=== PATIENT | female | born 1935 | race Caucasian/White ===

== ENCOUNTER 2017-01-07 10:08 | Outpatient (CLI) | payer MEDICARE, OTHER | END 2017-01-07 10:09 | disposition home or self-care (01) | DX: Z12.31 Encounter for screening mammogram for malignant neoplasm of breast (principal); Z85.3 Personal history of malignant neoplasm of breast; Z90.12 Acquired absence of left breast and nipple ==

== ENCOUNTER 2017-01-20 12:33 | Outpatient (CLI) | payer MEDICARE, OTHER | END 2017-01-20 12:34 | disposition home or self-care (01) | DX: S02.2XXA Fracture of nasal bones, initial encounter for closed fracture (principal) ==

== ENCOUNTER 2017-01-26 15:44 | Outpatient (CLI) | payer MEDICARE, OTHER ==
--- NOTE | 2017-01-27 10:30 | XRAY Report ---
THREE-VIEW RIGHT HAND: 01/26/2017 CLINICAL INDICATION: Pain. FINDINGS: AP, lateral, oblique views of the right hand demonstrate severe rheumatoid arthritis nunez es of the wrist joints and metacarpophalangeal joints. Additionally, there is an oblique fracture of the proximal phalanx of the right thumb, without definite intraarticular extension. No other fractu re is appreciated. IMPRESSION: FRACTURE OF THE PROXIMAL PHALANX OF THE RIGHT THUMB, MILDLY DISPLACED. SEVERE RHEUMATOI D ARTHRITIS. JOB #: [id number] EXT JOB #:[id number]
== END 2017-01-26 15:45 | disposition home or self-care (01) ==
LOC: DI 15:44
PROVIDERS: ATTEND Internal Medicine
DX: S62.511A Displaced fracture of proximal phalanx of right thumb, initial encounter for closed fracture (principal); M06.9 Rheumatoid arthritis, unspecified

== ENCOUNTER 2017-01-27 13:27 | Outpatient (CLI) | payer MEDICARE, OTHER ==
--- NOTE | 2017-01-28 11:45 | XRAY Report ---
TWO-VIEW RIGHT HIP: 01/27/2017 CLINICAL HISTORY: Hip pain. FINDINGS: The osseous structures are demineralized which does limit characterization of the cortices. There is no definite fracture or focus of destruction. There are degenerative changes noted about the right hip with joint space narrowing, subchondral sclerosis, and osteophytic formation. Degenerative changes and scoliosis incidental in the visualized lower lumbar spine. Moderate stool and gas is incidental in the colon. This does obscure detailed evaluation of the sacral ala. IMPRESSION: DEMINERALIZATION. NO ACUTE PROCESS. Reference additional comments above. JOB #: [id number] EXT JOB #: [id number] KANA
--- NOTE | 2017-01-28 11:46 | XRAY Report ---
TWO-VIEW RIGHT FEMUR: 01/27/2017 CLINICAL INDICATION: Leg pain. FINDINGS: Patchy bony demineralization noted. There is no fracture or focus of destruction. Proximal and distal joint spaces are preserved. Atherosclerotic calcifications are incidental in the femoral artery. IMPRESSION: 1. DEMINERALIZATION AND DEGENERATIVE CHANGES. NO ACUTE FRACTURE OR FOCUS OF DESTRUCTION. 2. VASCULAR CALCIFICATIONS. JOB #: [id number] EXT JOB #:[id number]
--- NOTE | 2017-01-28 11:46 | XRAY Report ---
TWO-VIEW RIGHT TIBIA AND FIBULA: 01/27/2017 HISTORY: Pain. FINDINGS: Patchy bony demineralization is noted. Mild degenerative changes are present at the proxi mal and distal joint spaces. There is no fracture, focus of destruction or malalignment. The soft tissues are grossly normal. IMPRESSION: BONY DEMINERALIZATION AND MILD DEGENERATIVE CHANGES. NO CUTE FRACTURE OR FOCUS OF DESTR UCTION. JOB #: [id number] EXT JOB #:[id number]
--- NOTE | 2017-01-28 11:46 | XRAY Report ---
THREE-VIEW RIGHT KNEE: 01/27/2017 HISTORY: Pain. FINDINGS: Patchy bony demineralization. Mild multicompartment degenerative changes noted with early medial, lateral, and patellofemoral narrowing and subchondral sclerosis. A small suprapatellar joint effusion exists. There is no fracture, focus of destruction, or malalignment. Vascular calcifications are incidental. IMPRESSION: 1. DEMINERALIZATION AND MILD DEGENERATIVE CHANGES. NO ACUTE PROCESS. 2. VASCULAR CALCIFICATIONS. :9 JOB #: [id number] EXT JOB #:[id number]
== END 2017-01-27 13:28 | disposition home or self-care (01) ==
LOC: DI 13:27
PROVIDERS: ATTEND Internal Medicine
DX: M16.11 Unilateral primary osteoarthritis, right hip (principal); M19.071 Primary osteoarthritis, right ankle and foot; M17.11 Unilateral primary osteoarthritis, right knee

== ENCOUNTER 2017-02-25 10:47 | Outpatient (CLI) | payer MEDICARE, OTHER | END 2017-02-25 10:48 | disposition critical access hospital (66) | DX: R10.9 Unspecified abdominal pain (principal) | CPT/HCPCS: A0425; A0427 ==

== ENCOUNTER 2017-02-25 11:16 | Emergency (ER) | payer MEDICARE, OTHER ==
[2017-02-25] MEDS ORDERED: SODIUM CHLORIDE 0.9% 1,000 ML IV ONE ×2 (12:24→12:31)
[2017-02-25] MEDS ORDERED: ONDANSETRON 4 MG/2 ML VIAL IVP STA (12:24)
[2017-02-25] MEDS ORDERED: HYDROmorphone 1 MG/ML SYRINGE IVP STA ×2 (12:24→14:26)
[2017-02-25] MEDS ORDERED: ONDANSETRON 4 MG/2 ML VIAL ONE (12:31)
[2017-02-25] MEDS ORDERED: HYDROmorphone 1 MG/ML SYRINGE ONE ×2 (12:31→14:45)
[2017-02-25] MEDS ORDERED: IOPAMIDOL-300 100 ML VIAL IVP ONE (14:14)
== END 2017-02-25 15:23 | disposition home or self-care (01) ==
DX: R10.32 Left lower quadrant pain (principal); K59.00 Constipation, unspecified; M06.9 Rheumatoid arthritis, unspecified; Z79.52 Long term (current) use of systemic steroids; I10 Essential (primary) hypertension; E78.00 Pure hypercholesterolemia, unspecified; G62.9 Polyneuropathy, unspecified; K21.9 Gastro-esophageal reflux disease without esophagitis
CPT/HCPCS: 74177; 80053; 81003; 83690; 85025; 96374; 96375; 96376; 99283; 99284; J1170; Q9967

== ENCOUNTER 2017-04-02 09:15 | Outpatient (CLI) | payer MEDICARE, OTHER | END 2017-04-02 09:16 | disposition home or self-care (01) | DX: I10 Essential (primary) hypertension (principal) ==

== ENCOUNTER 2017-04-21 11:05 | Outpatient (CLI) | payer MEDICARE, OTHER ==
--- NOTE | 2017-04-21 14:40 | XRAY Report ---
THREE-VIEW LUMBAR SPINE: 04/21/2017 CLINICAL INDICATION: Pain. COMPARISON: MRI 05/24/2016, plain films 02/16/2009. FINDINGS: Frontal, lateral, coned-down views of the lumbar spine demonstrate dextroscoliosis, simila r to MRI, increased from plain films of 02/16/2009. Degenerative disk and facet disease has increase d in the interval. Vascular calcifications are present. No definite compression fracture is identif ied, allowing for degree of scoliosis. IMPRESSION: DEGENERATIVE CHANGES, WITH DEXTROSCOLIOSIS, SIMILAR TO MRI. JOB #: [id number] EXT JOB #:[id number]
--- NOTE | 2017-04-21 14:46 | XRAY Report ---
RIGHT HIP AND PELVIS: 04/21/2017 CLINICAL INDICATION: Pain. COMPARISON: 01/27/2017 FINDINGS: Frontal view of the hips and pelvis and frogleg lateral view of the right hip demonstrate stable osteoarthritis. Old, healed left pelvic fractures are stable. No acute fracture is present. Vascular calcifications are present. IMPRESSION: STABLE OSTEOARTHRITIS OF THE RIGHT HIP. OLD, HEALED LEFT PELVIC FRACTURES. JOB #: [id number] EXT JOB #:[id number]
== END 2017-04-21 11:06 | disposition home or self-care (01) ==
LOC: DI.N 11:05
PROVIDERS: ATTEND Internal Medicine
DX: M51.36 Other intervertebral disc degeneration, lumbar region (principal); M47.896 Other spondylosis, lumbar region; M41.86 Other forms of scoliosis, lumbar region; M16.11 Unilateral primary osteoarthritis, right hip
CPT/HCPCS: 72100

== ENCOUNTER 2017-10-28 14:21 | Outpatient (CLI) | payer MEDICARE, OTHER ==
[2017-10-28 13:20] LABS: BASOPHILS # (AUTO) 0.1 10^3/uL (0.0-0.1); BASOPHILS % (AUTO) 0.8 %; EOSINOPHILS # (AUTO) 0.2 10^3/uL (0.0-0.7); EOSINOPHILS % (AUTO) 1.9 %; HCT - HEMATOCRIT 37.4 % (37.0-47.0); HGB - HEMOGLOBIN 12.7 g/dL (12.0-16.0); LYMPHOCYTES # (AUTO) 2.8 10^3/uL (1.5-3.5); LYMPHOCYTES % (AUTO) 30.9 %; MEAN CORPUSCULAR HEMOGLOBIN 30.9 pg (27.0-31.0); MEAN CORPUSCULAR HGB CONC 33.9 g/dL (32.0-36.0); MEAN CORPUSCULAR VOLUME 91.4 fL (81.0-99.0); MONOCYTES # (AUTO) 0.9 10^3/uL (0.0-1.0); MONOCYTES % (AUTO) 10.1 %; NEUTROPHILS # (AUTO) 5.1 10^3/uL (1.5-6.6); NEUTROPHILS % (AUTO) 56.3 %; NUCLEATED RED BLOOD CELLS AUTO 0.1 /100WBC; UNCORRECTED WHITE BLOOD COUNT 9.1 x10^3/uL; WHITE BLOOD COUNT 9.1 x10^3/uL (4.8-10.8)
[2017-10-28 13:59] LABS: ALBUMIN/GLOBULIN RATIO 1.7 (1.0-2.2); BILIRUBIN,TOTAL 0.8 mg/dL (0.2-1.0); CALCIUM 9.4 mg/dL (8.5-10.3); CREATININE 0.5 mg/dL (0.4-1.0); POTASSIUM 3.9 mmol/L (3.5-5.0); TOTAL PROTEIN 6.4 g/dL (6.7-8.2)
== END 2017-10-28 14:22 | disposition home or self-care (01) ==
LOC: LAB.WCP 14:21
PROVIDERS: ATTEND Internal Medicine Rheumatology
DX: M06.9 Rheumatoid arthritis, unspecified (principal)
CPT/HCPCS: 36415; 80053; 85025; 85651

== ENCOUNTER 2018-01-07 09:40 | Outpatient (CLI) | payer MEDICARE, OTHER ==
--- NOTE | 2018-01-08 14:06 | Mammography Report ---
DIGITAL SCREENING RIGHT MAMMOGRAM: 01/07/2018 CLINICAL INDICATION: An 82-year-old with personal history of left breast cancer, status post mastectomy for screening. COMPARISON: 12/2016, 07/2014, 09/2011, 09/2009. TECHNIQUE: Right CC and MLO views were obtained. FINDINGS: The right breast again demonstrate scattered fibroglandular densities. Biopsy marker in the right inner central breast is stable. No suspicious masses, clustered microcalcifications, or regions of architectural distortion are identified. IMPRESSION: BENIGN FINDINGS. RECOMMENDATION: ROUTINE ANNUAL SCREENING UNLESS OTHERWISE CLINICALLY INDICATED. BIRADS CATEGORY 2-BENIGN FINDINGS. STANDARD QUALIFYING STATEMENTS: 1. This examination was reviewed with the aid of Computer-Aided Detection (CAD). 2. A negative or benign imaging report should not delay biopsy if clinically suspicious findings are present. Consider surgical consultation if warranted. More than 5% of cancers are not identified by imaging. 3. Dense breasts may obscure an underlying neoplasm. TD: 01/08/2018 14:02
== END 2018-01-07 09:41 | disposition home or self-care (01) ==
LOC: DI 09:40
PROVIDERS: ATTEND Internal Medicine
DX: Z12.31 Encounter for screening mammogram for malignant neoplasm of breast (principal); Z85.3 Personal history of malignant neoplasm of breast; Z90.12 Acquired absence of left breast and nipple

== ENCOUNTER 2018-09-07 10:19 | Outpatient (CLI) | payer MEDICARE, OTHER ==
--- NOTE | 2018-09-07 16:18 | DEXA Report ---
Reason: OSTEOPOROSIS Procedure Date: 09/07/2018 Accession Number: [id number] / [id number] Procedure: DEX - Dexa Spine and/or Hip CPT Code: FULL RESULT: EXAM: Dexa Spine and/or Hip DATE: 09/07/2018 11:03 AM CLINICAL HISTORY: OSTEOPOROSIS TECHNIQUE: Dual energy x-ray absorptiometry (DXA) was performed on a [employer] System. Regions measured are the AP Spine, femoral neck, and if needed forearm. COMPARISON: 05/13/2016 In accordance with the International Society for Clinical Densitometry (ISCD) guidelines, data from previous exams may be reanalyzed using current recommendations and techniques. This is done to allow a more accurate basis for comparison with the current study. FINDINGS: The data for the lumbar spine is as follows: BMD (g/cm/cm) T-SCORE Z-SCORE REGION L1 0.661 -3.9 -1.5 L2 0.938 -2.2 0.2 L3 1.137 -0.5 1.9 L4 1.121 -0.7 1.8 TOTAL 0.957 -1.9 0.6 NOTE: All evaluable vertebrae are used for classification The data for the hip is as follows: BMD (g/cm/cm) T-SCORE Z-SCORE REGION Neck 0.706 -2.4 0.2 TOTAL 0.750 -2.0 0.4 NOTE: The femoral neck or total proximal femur, whichever is lowest, is used for classification. DXA RESULTS SUMMARY: Spine SCAN DATE AGE BMD CHANGE VS CHANGE VS PREVIOUS PREVIOUS % 09[birth year]07/2018 [age] 0.957 -0.113* -10.6* 05/13/2016 [age] 1.070 * Denotes significant change at the 95% confidence level. Denotes dissimilar scan types or analysis methods. DXA RESULTS SUMMARY: Hip SCAN DATE AGE BMD CHANGE VS CHANGE VS PREVIOUS PREVIOUS % [birth year]07[birth year]2018 83.2 0.750 -0.023 -3.0 05/13/2016 [age] 0.773 * Denotes significant change at the 95% confidence level. Denotes dissimilar scan types or analysis methods. IMPRESSION: THE WHO CLASSIFICATION BASED ON THE INTERNATIONAL REFERENCE STANDARD IS OSTEOPENIA. THE FRACTURE RISK IS INCREASED. RECOMMENDATION: Patients with diagnosis of osteoporosis or osteopenia should have regular bone mineral density assessment. For those eligible for Medicare, routine testing is allowed once every 2 years. Testing frequency can be increased for patients who have rapidly progressing disease or for those who are receiving medical therapy to restore bone mass. COMMENT: World Health Organization (WHO) definitions for osteoporosis and osteopenia: NORMAL BMD: T-score at -1.0 or higher, fracture risk is low OSTEOPENIA BMD: T-score between -1.0 and -2.5, fracture risk is increased. OSTEOPOROSIS BMD: T-score at -2.5 or lower, fracture risk is high. National Osteoporosis Foundation recommends: 1. Obtain adequate dietary calcium (at least 1200 mg per day) and vitamin D (400-800 international units per day). 2. Participate, as appropriate, in regular weightbearing and muscle-strengthening exercise. 3. Avoid tobacco use and reduce alcohol and caffeine intake. 4. For more detailed information see the website at www.NOF.org.
== END 2018-09-07 10:20 | disposition home or self-care (01) ==
LOC: DI 10:19
PROVIDERS: ATTEND Internal Medicine
DX: M81.0 Age-related osteoporosis without current pathological fracture (principal); M85.89 Other specified disorders of bone density and structure, multiple sites
CPT/HCPCS: 77080

== ENCOUNTER 2018-10-13 09:11 | Outpatient (CLI) | payer MEDICARE, OTHER ==
--- NOTE | 2018-10-14 14:09 | CT Report ---
Reason: SPINAL STENOSIS, CERVICAL REGION Procedure Date: 10/13/2018 Accession Number: [id number] / [id number] Procedure: CT - Cervical Spine W/O CPT Code: FULL RESULT: EXAM: CT CERVICAL SPINE WITHOUT CONTRAST DATE: 10/13/2018 09:45 AM. HISTORY: Spinal stenosis, cervical region. COMPARISONS: MRI cervical spine 05/24/2016. TECHNIQUE: Thin-section axial images were acquired of the cervical spine without contrast. Post-processing: Coronal and sagittal reformats. Other: None. In accordance with CT protocol optimization, one or more of the following dose reduction techniques were utilized for this exam: automated exposure control, adjustment of mA and/or KV based on patient size, or use of iterative reconstructive technique. FINDINGS: Alignment: There is loss of the normal cervical lordosis. There is approximately 3 mm anterolisthesis of C3 on C4, 3-4 mm retrolisthesis of C6 on C7, 3-4 mm anterolisthesis of C7 on T1, and 3 mm anterolisthesis of T2 on T3. Bones: Vertebral body heights are maintained. Degenerative endplate sclerosis at C4-C5, C5-C6 and C6-C7. Degenerative sclerosis at the inferior T1 endplate. Interspace Levels/Facets: C1-C2: Unremarkable. C2-C3: Left greater than right facet arthropathy. Left greater than right uncovertebral hypertrophy. Mild left foraminal narrowing. C3-C4: Severe disk height loss. Posterior disk osteophyte complex with right greater than left uncovertebral hypertrophy. Bilateral facet arthropathy. Moderate to severe right, mild left foraminal narrowing Findings could be correlated with the right C4 radiculopathy. C4-C5: Severe disk height loss. Posterior disk osteophyte complex eccentric to the right with right greater than left uncovertebral hypertrophy. Severe right greater than left foraminal narrowing. Moderate canal narrowing which is more pronounced on the right. Findings could be correlated with right greater than left C5 radiculopathy. C5-C6: Severe disk height loss. Posterior disk osteophyte complex with left greater than right uncovertebral hypertrophy. Severe left greater than right foraminal narrowing. Moderate canal narrowing. Findings could be correlated with left greater than right C6 radiculopathy. C6-C7: Retrolisthesis. Severe disk height loss. Left greater than right uncovertebral hypertrophy and left eccentric disk osteophyte complex. Severe left greater than right foraminal narrowing could be correlated with left greater than right C7 radiculopathy. C7-T1: Anterolisthesis. Moderate to severe disk height loss. No significant canal or foraminal narrowing. Left greater than right facet arthropathy. Moderate disk height loss at T1-T2 without significant canal or foraminal narrowing. Severe left greater than right disk height loss. 3 mm anterolisthesis at T2 and T3, moderate disk height loss. No significant foraminal narrowing. Musculature: Normal. No fatty atrophy. Other: The paravertebral and prevertebral soft tissues are unremarkable. The lung apices are clear. IMPRESSION: 1. Multilevel degenerative changes in a similar pattern compared to prior MRI cervical spine 05/24/2016. 2. Anterolisthesis at C3-C4, C7-T1 and T2-T3. Retrolisthesis at C6-C7, detailed above. 3. At C2-C3, mild left foraminal narrowing. 4. At C3-C4, moderate to severe right, mild left foraminal narrowing could be correlated with right C4 radiculopathy. 5. At C4-C5, severe right greater than left foraminal narrowing could be correlated with right greater than left C5 radiculopathy. 6. At C5-C6, moderate canal narrowing. Severe left greater than right foraminal narrowing could be correlated with left greater than right C6 radiculopathy. 7. At C6-C7, severe left greater than right foraminal narrowing could be correlated with left greater than right C7 radiculopathy. RADIA
== END 2018-10-13 09:12 | disposition home or self-care (01) ==
LOC: DI 09:11
PROVIDERS: ATTEND Orthopaedic Surgery
DX: M48.02 Spinal stenosis, cervical region (principal); M50.10 Cervical disc disorder with radiculopathy, unspecified cervical region
CPT/HCPCS: 72125

== ENCOUNTER 2019-01-24 12:08 | Outpatient (CLI) | payer MEDICARE, OTHER ==
--- NOTE | 2019-01-24 14:52 | XRAY Report ---
Reason: ACUTE COMMON COLD Procedure Date: 01/24/2019 Accession Number: [id number] / [id number] Procedure: XRN - Chest 2 View X-Ray CPT Code: 37845 FULL RESULT: EXAM: CHEST RADIOGRAPHY EXAM DATE: 01/24/2019 12:25 PM. CLINICAL HISTORY: Acute common cold. COMPARISON: 10/05/2013 1:16 PM. TECHNIQUE: 2 views. FINDINGS: Lungs/Pleura: No focal opacities evident. No pleural effusion. No pneumothorax. Normal volumes. Mediastinum: The heart is enlarged. Mediastinal and hilar contours are within normal limits. Other: S-shaped long thoracic scoliosis is again noted, convex right in its lower portion. Chronic nonunited fracture of the posterior right eighth rib. IMPRESSION: 1. Cardiomegaly with no edema or infiltrate. RADIA
== END 2019-01-24 12:09 | disposition home or self-care (01) ==
LOC: DI.N 12:08
PROVIDERS: ATTEND Internal Medicine
DX: J06.9 Acute upper respiratory infection, unspecified (principal); I51.7 Cardiomegaly
CPT/HCPCS: 71046

== ENCOUNTER 2019-09-15 09:22 | Outpatient (CLI) | payer MEDICARE, OTHER ==
[2019-09-15 09:59] LABS: BASOPHILS # (AUTO) 0.1 10^3/uL (0.0-0.1); BASOPHILS % (AUTO) 0.5 %; EOSINOPHILS # (AUTO) 0.2 10^3/uL (0.0-0.7); EOSINOPHILS % (AUTO) 2.4 %; HGB - HEMOGLOBIN 12.1 g/dL (12.0-16.0); LYMPHOCYTES # (AUTO) 1.7 10^3/uL (1.5-3.5); LYMPHOCYTES % (AUTO) 18.4 %; MEAN CORPUSCULAR HEMOGLOBIN 29.6 pg (27.0-31.0); MEAN CORPUSCULAR HGB CONC 31.5 g/dL (32.0-36.0); MEAN CORPUSCULAR VOLUME 93.9 fL (81.0-99.0); MONOCYTES # (AUTO) 0.7 10^3/uL (0.0-1.0); MONOCYTES % (AUTO) 7.2 %; NEUTROPHILS # (AUTO) 6.7 10^3/uL (1.5-6.6); PLT - PLATELET COUNT 402 10^3/uL (130-450); RED BLOOD COUNT 4.09 10^6/uL (4.20-5.40); RED CELL DISTRIBUTION WIDTH 13.8 % (12.0-15.0); WHITE BLOOD COUNT 9.4 x10^3/uL (4.8-10.8)
[2019-09-15 10:09] LABS: ALBUMIN 3.5 g/dL (3.2-5.5); ALBUMIN/GLOBULIN RATIO 0.9 (1.0-2.2); BILIRUBIN,TOTAL 0.5 mg/dL (0.2-1.0); CALCIUM 9.1 mg/dL (8.5-10.3); CREATININE 0.4 mg/dL (0.4-1.0); TOTAL PROTEIN 7.4 g/dL (6.7-8.2)
== END 2019-09-15 09:23 | disposition home or self-care (01) ==
LOC: LAB 09:22
PROVIDERS: ATTEND Internal Medicine Rheumatology
DX: M05.79 Rheumatoid arthritis with rheumatoid factor of multiple sites without organ or systems involvement (principal)
CPT/HCPCS: 36415; 80053; 85025; 85651

== ENCOUNTER 2019-11-23 08:00 | Outpatient (CLI) | payer MEDICARE, OTHER ==
[2019-11-23 12:41] LABS: BASOPHILS % (AUTO) 0.5 %; EOSINOPHILS # (AUTO) 0.2 10^3/uL (0.0-0.7); EOSINOPHILS % (AUTO) 3.9 %; HGB - HEMOGLOBIN 12.5 g/dL (12.0-16.0); LYMPHOCYTES # (AUTO) 3.1 10^3/uL (1.5-3.5); LYMPHOCYTES % (AUTO) 52.4 %; MEAN CORPUSCULAR HEMOGLOBIN 28.9 pg (27.0-31.0); MEAN CORPUSCULAR HGB CONC 30.3 g/dL (32.0-36.0); MEAN CORPUSCULAR VOLUME 95.4 fL (81.0-99.0); MEAN PLATELET VOLUME 11.1 fL (7.9-10.8); MONOCYTES # (AUTO) 0.7 10^3/uL (0.0-1.0); MONOCYTES % (AUTO) 12.1 %; NEUTROPHILS # (AUTO) 1.8 10^3/uL (1.5-6.6); NEUTROPHILS % (AUTO) 30.9 %; PLT - PLATELET COUNT 220 10^3/uL (130-450); RED BLOOD COUNT 4.32 10^6/uL (4.20-5.40); RED CELL DISTRIBUTION WIDTH 15.8 % (12.0-15.0); WHITE BLOOD COUNT 5.9 x10^3/uL (4.8-10.8)
[2019-11-23 13:40] LABS: ALBUMIN 4.3 g/dL (3.2-5.5); ALBUMIN/GLOBULIN RATIO 1.5 (1.0-2.2); BILIRUBIN,TOTAL 0.7 mg/dL (0.2-1.0); CALCIUM 9.7 mg/dL (8.5-10.3); CREATININE 0.5 mg/dL (0.4-1.0); TOTAL PROTEIN 7.2 g/dL (6.7-8.2)
== END 2019-11-23 23:59 | disposition home or self-care (01) ==
LOC: LAB.WCP 08:00
PROVIDERS: ATTEND Internal Medicine Rheumatology
DX: M05.79 Rheumatoid arthritis with rheumatoid factor of multiple sites without organ or systems involvement (principal)
CPT/HCPCS: 36415; 80053; 85025; 85651

== ENCOUNTER 2020-08-10 12:12 | Emergency (ER) | payer MEDICARE, OTHER ==
[2020-08-10] MEDS ORDERED: oxyCODONE 5 MG TABLET PO STA (13:49)
--- NOTE | 2020-08-10 13:50 | XRAY Report ---
PROCEDURE: Shoulder 2 View RT INDICATIONS: trauma TECHNIQUE: 2 views of the shoulder were acquired. COMPARISON: Concurrent study of the humerus.. FINDINGS: Bones: There is a mildly comminuted fracture of the right humeral head and neck. There is associated impaction of the humeral shaft component by approximately 0.6 cm. There is an old healed fracture of the mid humeral shaft. No suspicious bony lesions. Visualized ribs appear intact. Soft tissues: No suspicious soft tissue calcifications. IMPRESSION: 1. Mildly comminuted fracture of the humeral head and neck with mild impaction of the shaft component . 2. Healed mid humeral shaft fracture. Reviewed by: Jimbo Pereira MD on 08/10/2020 1:49 PM PDT Approved by: Jimbo Pereira MD on 08/10/2020 1:49 PM PDT Station ID: [id number]
--- NOTE | 2020-08-10 14:04 | ED Physician Documentation ---
History of Present Illness - Stated complaint Stated Complaint: GLF - Chief complaint Chief Complaint: Trauma Hd/Nk - History obtained from History obtained from: Patient - History of Present Illness Timing: Today Pain level max: 5 Pain level now: 5 - Additonal information Additional information: 85-year-old female presents to the emergency department stating that she was getting dressed when she tripped and fell and struck her head on the doorway. She complains of right shoulder pain and headache. She states she is not on blood thinners. No back pain. No numbness or tingling. She is currently in a sling. No loss of consciousness. No vomiting. Worse with movement and better with rest. Review of Systems Constitutional: denies: Fever, Chills Cardiac: denies: Chest pain / pressure Respiratory: denies: Cough GI: denies: Nausea, Vomiting, Diarrhea Skin: denies: Rash Musculoskeletal: denies: Neck pain, Back pain Neurologic: reports: Headache, Head injury. denies: Focal weakness, Numbness, Confused, Altered mental status PD PAST MEDICAL HISTORY - Past Medical History Past Medical History: Yes Cardiovascular: Hypertension, High cholesterol Respiratory: None Endocrine/Autoimmune: None GI: GERD CLINICAL APPEALS REVIEWER: Breast cancer : Incontinence, Frequency HEENT: Dental implants, Other Psych: None, Claustrophobia Musculoskeletal: Rheumatoid arthritis, Osteoporosis, Fatigue Derm: Other - Past Surgical History Past Surgical History: Yes General: Colonoscopy Ortho: Other /CLINICAL APPEALS REVIEWER: Mastectomy HEENT: Cataracts - Present Medications Home Medications: Ambulatory Orders Medication Instructions Recorded Confirmed Aspirin [Aspir 81] 81 mg ORAL DAILY 08/29/15 08/10/20 Calcium Carb/D3/Magnesium/Zinc 1 tab ORAL DAILY 08/29/15 08/10/20 [[place] Mag Zinc + D3 Tablet] Folic Acid 1 mg ORAL DAILY 08/29/15 08/10/20 Hydroxychloroquine [Plaquenil] 200 mg ORAL BID 08/29/15 03/02/20 Multivit-Min/FA/Lycopen/Lutein 1 tab ORAL DAILY 08/29/15 08/10/20 [Centrum Silver Tablet] [place]-3 Fatty Acids [Fish Oil] 300 mg ORAL DAILY 08/29/15 03/02/20 Omeprazole [PriLOSEC] 20 mg PO DAILY PRN 07/03/16 08/10/20 Atorvastatin Calcium [Lipitor] 0.5 tab ORAL DAILY 02/19/17 08/10/20 Enalapril Maleate [Vasotec] 1 tab PO DAILY 02/25/17 08/10/20 Hydrochlorothiazide 1 tab PO DAILY 02/25/17 03/02/20 Methotrexate 2.5 mg PO Q7D 02/25/17 03/02/20 raNITIdine [Zantac] 1 tab PO BID 02/25/17 03/02/20 Acetaminophen/Cod 300/30 [Tylenol 1 tab ORAL Q4HR PRN 09/10/17 08/10/20 #3] Prednisone [Patti] 4 mg PO DAILY 12/11/17 08/10/20 Fluoxetine HCl [Prozac] DAILY 08/10/20 Metoprolol Tartrate [Lopressor] 25 mg PO BID 08/10/20 08/10/20 Oxycodone HCl 2.5 mg PO Q6H PRN #14 tablet 08/10/20 - Allergies Allergies/Adverse Reactions: Allergies Allergy/AdvReac Type Severity Reaction Status Date / Time No Known Drug Allergies Allergy Verified 08/10/20 12:33 - Social History Does the pt smoke?: No Smoking Status: Former smoker Does the pt drink ETOH?: No Does the pt have substance abuse?: No - Immunizations Immunizations are current?: Yes - POLST Patient has POLST: No PD ED PE NORMAL - Vitals Vital signs reviewed: Yes - General General: Alert and oriented X 3, No acute distress - HEENT HEENT: Moist mucous membranes, Other (Hematoma to the right forehead. Significant bruising on the right side of the face especially, bilateral periorbital ecchymosis. No hyphemas. normal visual acuity) - Neck Neck: Supple, no meningeal sign - Cardiac Cardiac: RRR - Respiratory Respiratory: No respiratory distress, Clear bilaterally - Back Back: No CVA TTP, No spinal TTP (No midline tenderness to palpation. No step- off or deformity) - Derm Derm: Warm and dry - Extremities Extremities: Other (tender to palpation over the right glenohumeral joint. No tenderness along the remainder of the humerus. Neurovascular intact. Mild swelling. Otherwise normal examination of the extremities including the bilateral hips.) - Neuro Neuro: Alert and oriented X 3 Results - Vitals Vitals: Vital Signs - 24 hr 08/10/20 08/10/20 12:33 15:16 Temperature 36.8 C Heart Rate 57 L 56 L Respiratory 16 18 Rate Blood Pressure 171/85 H 140/112 H O2 Saturation 98 96 Oxygen O2 Source Room air - Rads (name of study) CT head Radiology: Prelim report reviewed, EMP read contemporaneously, See rad report CT maxillofacial Radiology: Prelim report reviewed, EMP read contemporaneously, See rad report CT cervical spine Radiology: Prelim report reviewed, EMP read contemporaneously, See rad report Right shoulder x-ray Radiology: Prelim report reviewed, EMP read contemporaneously, See rad report Right humerus x-ray Radiology: Prelim report reviewed, EMP read contemporaneously, See rad report PD MEDICAL DECISION MAKING - ED course Complexity details: reviewed results, re-evaluated patient, considered differential, d/w patient, d/w family ED course: 85-year-old female status post a ground-level fall. No acute findings on head CT, maxillofacial CT, cervical spine CT other than soft tissue contusions. Patient does have a impacted right humeral head fracture. Placed in a sling and swathe. Neurovascular intact. Will prescribe pain medications for home and have her follow-up with orthopedics. No other acute injuries. Patient and family counseled regarding signs and symptoms for which I believe and urgent re- evaluation would be necessary. Patient with good understanding of and agreement to plan and is comfortable going home at this time This document was made in part using voice recognition software. While efforts are made to proofread this document, sound alike and grammatical errors may occur. Departure - Departure Disposition: 01 Home, Self Care Clinical Impression: Contusion of face Qualifiers: Encounter type: initial encounter Qualified Code(s): S00.83XA - Contusion of other part of head, initial encounter Humeral head fracture Qualifiers: Encounter type: initial encounter Fracture type: closed Laterality: right Qualified Code(s): S42.291A - Other displaced fracture of upper end of right humerus, initial encounter for closed fracture Condition: Good Instructions: ED Contusion Face, ED Fx Upper Ext Follow-Up: Razia Campuzano MD [Primary Care Provider] - [facility] [Provider Group] - Within 1 week Prescriptions: Oxycodone HCl 2.5 mg PO Q6H PRN #14 tablet PRN Reason: pain Comments: There are no acute findings on your CT scan today. You are to stay in the splint until released by orthopedics. You do have a fracture of the right humeral head. Do not drink alcohol or drive while on narcotic pain medicine. Note that many narcotic pain relievers also contain tylenol/acetaminophen. Please ensure that your total dose of acetaminophen from all sources does not e xceed 3 grams (3000mg) per day. You may constipated on this medication, take a stool softener such as "Colace" twice a day while you are on it. Also recommend a dfhy-vlg-[id number] laxative such as senna or MiraLAX any day that you do not have a bowel movement. If you received narcotic pain medication in the emergency department, do not drive or operate machinery for the next 24 hours. Discharge Date/Time: 08/10/20 15:25
--- NOTE | 2020-08-10 14:16 | XRAY Report ---
PROCEDURE: Humerus RT INDICATIONS: trauma TECHNIQUE: 2 views of the humerus were acquired. COMPARISON: None. FINDINGS: Bones: Oblique fracture of the mid humeral diaphysis. Comminuted fracture of the surgical neck of the right humerus.. Calcific tendinitis. IMPRESSION: Right humeral fractures as above Reviewed by: Wicho Gray MD on 08/10/2020 2:15 PM PDT Approved by: Wicho Gray MD on 08/10/2020 2:15 PM PDT Station ID: [id number]
--- NOTE | 2020-08-10 14:20 | CT Report ---
PROCEDURE: HEAD WO INDICATIONS: Fall, right head, face, neck pain TECHNIQUE: Noncontrast 4.5 mm thick angled axial sections acquired from the foramen magnum to the vertex. For r adiation dose reduction, the following was used: automated exposure control, adjustment of mA and/or kV according to patient size. COMPARISON: None. FINDINGS: Image quality: Excellent. CSF spaces: Basal cisterns are patent. No extra-axial fluid collections. Ventricles are normal in size and shape. Brain: No midline shift. No intracranial masses or hemorrhage. Ramirez-white matter interface is norm al. Skull and face: Calvarium and visualized facial bones are intact, without suspicious lesions. Hemat genoveva and edema in the right scalp overlying the frontal bone in the right superior/lateral periorbital regions. Sinuses: Visualized sinuses and mastoids are clear. IMPRESSION: No acute intracranial finding. Hematoma and edema in the right scalp overlying the frontal bone in the right superior/lateral perior bital regions. Reviewed by: Pedro Otto MD on 08/10/2020 2:18 PM PDT Approved by: Pedro Otto MD on 08/10/2020 2:18 PM PDT Station ID: [id number]
--- NOTE | 2020-08-10 14:24 | CT Report ---
PROCEDURE: CERVICAL SPINE WO INDICATIONS: fall, R head, face, neck pain TECHNIQUE: Noncontrast 3 mm thick sections acquired from the skull base to the T4 level. Sagittal and coronal r eformats were then constructed. For radiation dose reduction, the following was used: automated exp osure control, adjustment of mA and/or kV according to patient size. COMPARISON: Correlation is made with the accompanying head CT and maxillofacial CT, 08/10/2020 FINDINGS: Image quality: Excellent. Bones: No fractures or dislocations. Visualized superior ribs are intact. S-shaped scoliotic curvature is incidentally noted. Degenerative changes are seen throughout, with moderate disc space narrowing at C3-C4 with moderate t o severe disc space narrowing at C4-C5, C5-C6, and C6-C7. Moderate to severe disc space narrowing is also seen at T1-T2 and T2-3. There is grade 1 anterolisthesis seen at C3-C4, C7-T1 and at T2-T3. Mini mal retrolisthesis is seen at C4-C5, C5-C6, and C6-C7. Facet arthropathy is seen, which is more promi nent on the right side than on the left. Soft tissues: Prevertebral soft tissues are normal in thickness. No paravertebral hematomas. No ap ical pneumothoraces. The thyroid is small in size. Atherosclerotic calcification is seen. IMPRESSION: Advanced degenerative changes are seen, without acute fractures identified. Reviewed by: Chico Garcia MD on 08/10/2020 1:22 PM SONNY Approved by: Chico Garcia MD on 08/10/2020 1:22 PM AKZINA Station ID: [id number]
--- NOTE | 2020-08-10 14:31 | CT Report ---
PROCEDURE: MAXILLOFACIAL WO INDICATIONS: fall, R head, face, neck pain TECHNIQUE: Noncontrast 1.5 mm thick axial images acquired from the mandible through the frontal sinuses, with co malaika and sagittal reformatting. For radiation dose reduction, the following was used: automated ex posure control, adjustment of mA and/or kV according to patient size. COMPARISON: None. FINDINGS: Image quality: Excellent. Bones and teeth: Orbital boo are intact. Sinus boo show no fracture or deformity. Nasal bones and septum are intact. Visualized portions of the mandible demonstrate no fractures or subluxation. Zygomatic arches are intact. Pterygoid plates are intact. Visualized portions of the skull base an d auditory canals are intact. Sinuses: Mild right paranasal sinus mucosal thickening which narrows but does not obstruct the spheno ethmoid recess. Remaining paranasal sinuses clear. Mastoid air cells are also clear. Soft tissues: Swelling and hematoma in the right superior lateral paravertebral regions as well as in the right prefrontal region. The globe and intraorbital structures are normal. Vascular: Visualized vascular structures appear normal in the absence of contrast. Bony vascular fo ramina and canals are intact. IMPRESSION: Hematoma and edema in the right superior/lateral parapharyngeal region and right prefrontal scalp. No acute osseous finding. Reviewed by: Pedro Otto MD on 08/10/2020 2:30 PM PDT Approved by: Pedro Otto MD on 08/10/2020 2:30 PM PDT Station ID: [id number]
[2020-08-10 15:17] VITALS: BP 140/112
== END 2020-08-10 15:25 | disposition home or self-care (01) ==
LOC: ED 12:12
DX: S00.11XA Contusion of right eyelid and periocular area, initial encounter (principal); S00.83XA Contusion of other part of head, initial encounter; S42.291A Other displaced fracture of upper end of right humerus, initial encounter for closed fracture; W01.198A Fall on same level from slipping, tripping and stumbling with subsequent striking against other object, initial encounter; Y93.E8 Activity, other personal hygiene; Z87.891 Personal history of nicotine dependence
CPT/HCPCS: 70450; 70486; 72125; 73030; 73060; 99284; A9270

== ENCOUNTER 2020-08-20 08:00 | Outpatient (CLI) | payer MEDICARE, OTHER ==
--- NOTE | 2020-08-20 17:25 | XRAY Report ---
PROCEDURE: Wrist 3 View RT INDICATIONS: RIGHT WRIST PAIN TECHNIQUE: 3 views of the wrist were acquired. COMPARISON: None FINDINGS: Bones: Diffuse demineralization. There is long-standing, chronic deformity of the wrist involving adv anced collapse of the proximal carpal row, proximal migration of the distal carpal row and metacarpal bases, diffuse radiocarpal joint space loss, remodeling of the distal ulna with surrounding cloudlik e calcification, and a chronic appearing dorsal subluxation of the radiocarpal articulation. In addition, there is advanced subluxation/volar dislocation at the metacarpophalangeal joints 1 thro ugh 5 with erosive changes of the metacarpal heads, particularly the second. Soft tissues: No suspicious soft tissue calcifications. 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 An acute fracture is not seen but would be easily m issed. Immobilization and reimaging in one week is recommended. 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 Reviewed by: Maribeth Chin MD on 08/20/2020 5:23 PM PDT Approved by: Maribeth Chin MD on 08/20/2020 5:23 PM PDT Station ID: [id number]
--- NOTE | 2020-08-20 17:35 | XRAY Report ---
PROCEDURE: Humerus RT INDICATIONS: RIGHT HUMERUS FRACTURE TECHNIQUE: 2 views of the humerus were acquired. COMPARISON: 08/10/2020 FINDINGS: Bones: Redemonstrated are slightly impacted fracture of the surgical neck of the humerus, nondisplace d comminuted humeral head fracture, and a partially healed spiral humeral diaphyseal fracture. No shruthi picious bony lesions. Soft tissues: No suspicious soft tissue calcifications. There is glenohumeral joint chondrocalcinos is. IMPRESSION: 1. No change in minor displacement of the humeral head, neck, and diaphyseal fractures. Reviewed by: Maribeth Chin MD on 08/20/2020 5:33 PM PDT Approved by: Maribeth Chin MD on 08/20/2020 5:33 PM PDT Station ID: [id number]
== END 2020-08-20 23:59 | disposition home or self-care (01) ==
LOC: DI.WCP 08:00
PROVIDERS: ATTEND Physician Assistant
DX: M19.031 Primary osteoarthritis, right wrist (principal); M19.041 Primary osteoarthritis, right hand; M18.11 Unilateral primary osteoarthritis of first carpometacarpal joint, right hand; M85.841 Other specified disorders of bone density and structure, right hand; S42.211D Unspecified displaced fracture of surgical neck of right humerus, subsequent encounter for fracture with routine healing

== ENCOUNTER 2020-10-01 08:29 | Outpatient (CLI) | payer MEDICARE, OTHER ==
--- NOTE | 2020-10-01 15:33 | XRAY Report ---
PROCEDURE: Humerus RT INDICATIONS: DISPLACED FX OF R HUMERAL SHAFT TECHNIQUE: 2 views of the humerus were acquired. COMPARISON: X-ray humerus 08/20/2020 FINDINGS: Bones there is interval healing with stable alignment of impacted head and neck humeral fracture. In addition, continued interval healing is noted of the humeral diaphyseal fracture. No suspicious bony lesions. Soft tissues: No suspicious soft tissue calcifications. IMPRESSION: 1. Continued interval healing with stable alignment of previously identified femoral head, neck and d iaphyseal fractures. Reviewed by: Pamela Anthony MD on 10/01/2020 3:32 PM PST Approved by: Pamela Anthony MD on 10/01/2020 3:32 PM PST Station ID: [id number]
== END 2020-10-01 23:59 | disposition home or self-care (01) ==
LOC: DI.N 08:29
PROVIDERS: ATTEND Physician Assistant
DX: S42.331D Displaced oblique fracture of shaft of humerus, right arm, subsequent encounter for fracture with routine healing (principal)

== ENCOUNTER 2020-12-19 08:00 | Outpatient (CLI) | payer MEDICARE, OTHER ==
[2020-12-19 18:00] LABS: BASOPHILS % (AUTO) 0.4 %; EOSINOPHILS # (AUTO) 0.1 10^3/uL (0.0-0.7); EOSINOPHILS % (AUTO) 3.1 %; HGB - HEMOGLOBIN 13.2 g/dL (12.0-16.0); LYMPHOCYTES # (AUTO) 1.8 10^3/uL (1.5-3.5); LYMPHOCYTES % (AUTO) 39.4 %; MEAN CORPUSCULAR HEMOGLOBIN 31.7 pg (27.0-31.0); MEAN CORPUSCULAR HGB CONC 31.7 g/dL (32.0-36.0); MEAN CORPUSCULAR VOLUME 100.2 fL (81.0-99.0); MEAN PLATELET VOLUME 10.9 fL (7.9-10.8); MONOCYTES # (AUTO) 0.5 10^3/uL (0.0-1.0); MONOCYTES % (AUTO) 11.8 %; NEUTROPHILS # (AUTO) 2.1 10^3/uL (1.5-6.6); NEUTROPHILS % (AUTO) 45.1 %; PLT - PLATELET COUNT 220 10^3/uL (130-450); RED BLOOD COUNT 4.16 10^6/uL (4.20-5.40); RED CELL DISTRIBUTION WIDTH 13.1 % (12.0-15.0); WHITE BLOOD COUNT 4.6 x10^3/uL (4.8-10.8)
[2020-12-19 18:14] LABS: ALBUMIN 4.2 g/dL (3.2-5.5); ALBUMIN/GLOBULIN RATIO 1.9 (1.0-2.2); ALKALINE PHOSPHATASE 60 IU/L (42-121); ALT ALANINE AMINOTRANSFERASE 19 IU/L (10-60); AST ASPARTATE AMINOTRANSFERASE 32 IU/L (10-42); BILIRUBIN,TOTAL 0.8 mg/dL (0.2-1.0); BUN - BLOOD UREA NITROGEN 14 mg/dL (6-20); CALCIUM 9.3 mg/dL (8.5-10.3); CARBON DIOXIDE - CO2 29 mmol/L (21-32); CHLORIDE 100 mmol/L (101-111); CHOL/HDL RATIO 2.4 (<4.4); CHOLESTEROL 149 mg/dL; CREATININE 0.6 mg/dL (0.4-1.0); GLUCOSE 93 mg/dL (70-100); HDL CHOLESTEROL 62 mg/dL; LDL CHOLESTEROL,CALCULATED 67 mg/dL; LDL/HDL RATIO 1.1 (<4.4); TOTAL PROTEIN 6.4 g/dL (6.7-8.2); VLDL CHOLESTEROL 20 mg/dL
== END 2020-12-19 23:59 | disposition home or self-care (01) ==
LOC: LAB.WCP 08:00
PROVIDERS: ATTEND Internal Medicine Rheumatology
DX: M05.79 Rheumatoid arthritis with rheumatoid factor of multiple sites without organ or systems involvement (principal); I10 Essential (primary) hypertension
CPT/HCPCS: 36415; 80053; 80061; 83721; 85025; 85651

== ENCOUNTER 2021-01-18 19:45 | Outpatient (CLI) | payer MEDICARE, OTHER | END 2021-01-18 19:46 | disposition critical access hospital (66) | LOC: EMS 19:45 | PROVIDERS: ATTEND Emergency Medicine | DX: S01.01XA Laceration without foreign body of scalp, initial encounter (principal); W18.39XA Other fall on same level, initial encounter; Y93.01 Activity, walking, marching and hiking; Y92.009 Unspecified place in unspecified non-institutional (private) residence as the place of occurrence of the external cause | CPT/HCPCS: A0425; A0429 ==

== ENCOUNTER 2021-01-18 20:12 | Emergency (ER) | payer MEDICARE, OTHER ==
[2021-01-18] MEDS ORDERED: TETANUS/DIPHTHERIA/PERTUSSIS 0.5 ML SYRINGE IM ONE (20:20)
--- NOTE | 2021-01-18 20:22 | ED Physician Documentation ---
PD HPI HEAD INJURY - Stated complaint Stated Complaint: GLF, HIT HEAD - History obtained from History obtained from: Patient, EMS - Additional information Additional information: She was unsteady and fell at 1 AM this morning hitting the back of her head on a chair. No loss of consciousness. Had a headache, improved now. It bled all day though and that is what prompted the ED visit. Tetanus is unknown. 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 HOUSE: Breast cancer : Incontinence, Frequency HEENT: Dental implants, Other Psych: None, Claustrophobia Musculoskeletal: Rheumatoid arthritis, Osteoporosis, Fatigue Derm: Other - Past Surgical History Past Surgical History: Yes General: Colonoscopy Ortho: Other /SUPERINTENDENT HOUSE: Mastectomy HEENT: Cataracts - Present Medications Home Medications: Ambulatory Orders Medication Instructions Recorded Confirmed Calcium Carb/D3/Magnesium/Zinc 1 tab ORAL DAILY 08/29/15 01/18/21 [[place] Mag Zinc + D3 Tablet] Folic Acid 1 mg ORAL DAILY 08/29/15 01/18/21 Multivit-Min/FA/Lycopen/Lutein 1 tab ORAL DAILY 08/29/15 01/18/21 [Centrum Silver Tablet] [place]-3 Fatty Acids [Fish Oil] 300 mg ORAL DAILY 08/29/15 01/18/21 Omeprazole [PriLOSEC] 20 mg PO DAILY PRN 07/03/16 01/18/21 Atorvastatin Calcium [Lipitor] 0.5 tab ORAL DAILY 02/19/17 01/18/21 Enalapril Maleate [Vasotec] 1 tab PO DAILY 02/25/17 01/18/21 Methotrexate [Methotrexate Sodium] 2.5 mg PO Q7D 02/25/17 01/18/21 Prednisone [Patti] 4 mg PO DAILY 12/11/17 01/18/21 Fluoxetine HCl [Prozac] 20 mg PO DAILY 08/10/20 01/18/21 Metoprolol Tartrate [Lopressor] 25 mg PO BID 08/10/20 01/18/21 - Allergies Allergies/Adverse Reactions: Allergies Allergy/AdvReac Type Severity Reaction Status Date / Time No Known Drug Allergies Allergy Verified 01/18/21 20:20 - Social History Does the pt smoke?: No Smoking Status: Former smoker Does the pt drink ETOH?: No Does the pt have substance abuse?: No - Immunizations Immunizations are current?: Yes - POLST Patient has POLST: No PD ED PE NORMAL - Vitals Vital signs reviewed: Yes - General General: Alert and oriented X 3, No acute distress, Other (She has a lot of dried blood on the occiput, unable to visualize laceration on initial evaluation and she is in C-spine precautions) - HEENT HEENT: PERRL - Neck Neck: No bony TTP (But maintained in a c-collar pending imaging given advanced age) - Cardiac Cardiac: RRR, No murmur - Respiratory Respiratory: No respiratory distress, Clear bilaterally - Abdomen Abdomen: Soft, Non tender - Back Back: No CVA TTP, No spinal TTP - Derm Derm: Normal color, Warm and dry - Extremities Extremities: No edema, No calf tenderness / cord - Neuro Neuro: Alert and oriented X 3, Normal speech Results - Vitals Vitals: Vital Signs - 24 hr 01/18/21 01/18/21 20:20 20:26 Temperature 36.5 C 36.5 C Heart Rate 72 72 Respiratory 18 18 Rate Blood Pressure 175/70 H 175/70 H O2 Saturation 99 99 Oxygen O2 Source Room air - Labs Labs: Laboratory Tests 01/18/21 20:30 Hgb 11.6 L Hct 35.9 L - Rads (name of study) CT Head and C spine Radiology: EMP read contemporaneously (NAD) Procedures - Laceration (location) Scalp Length in cm: 3 Wound type: Linear, Into muscle, Clean Anesthesia: Lidocaine 2% with epi Wound preparation: Chlorhexadine, Irrigated copiously NS Skin layer closure: [place] (6) Other: Patient tolerated well, No complications, Neurovascular intact, Tetanus booster given PD MEDICAL DECISION MAKING - ED course ED course: This is a mirna 85-year-old woman who presents by ambulance for head injury. She has quite a bit of blood in her hair and EMS describes that there was blood all over the house. An H&H was done and is dropped from her baseline, but not significantly enough to require further treatment. Care was delayed somewhat as her hair was so matted with blood that one of the techs had to take her over to the inpatient wing to shower her off, she did that for about half an hour getting most of the blood out. Subsequently I was able to visualize the wound, she had about a 1 inch laceration on the right occiput that was thoroughly irrigated and multiple clots were removed from it and then it was closed with 6 brian. Departure - Departure Disposition: 01 Home, Self Care Clinical Impression: Laceration, Acute blood loss anemia (ABLA) Injury of head and neck Qualifiers: Encounter type: initial encounter Qualified Code(s): S09.90XA - Unspecified injury of head, initial encounter; S19.9XXA - Unspecified injury of neck, initial encounter Condition: Stable Record reviewed to determine appropriate education?: Yes Instructions: ED Laceration Scalp Stitch Or Stap, ED Head Injury Closed Comments: Come back for any signs of infection which would include: Redness, swelling, drainage, increased pain, or fevers. You can wash it soap/shampoo and water. Follow-up with your physician in 7-10 days for staple
[2021-01-18 20:35] LABS: HCT - HEMATOCRIT 35.9 % (37.0-47.0); HGB - HEMOGLOBIN 11.6 g/dL (12.0-16.0)
--- NOTE | 2021-01-18 20:53 | CT Report ---
PROCEDURE: CERVICAL SPINE WO INDICATIONS: Head injury TECHNIQUE: Noncontrast 3 mm thick sections acquired from the skull base to the T4 level. Sagittal and coronal r eformats were then constructed. For radiation dose reduction, the following was used: automated exp osure control, adjustment of mA and/or kV according to patient size. COMPARISON: None. FINDINGS: Extensive and severe degenerative changes with straightening of the usual cervical lordosis. Anteroli sthesis of C3 on C4 measuring 3 mm is presumably degenerative as well as there is associated bulky fa cet osteoarthropathy and posterior disc-osteophyte complex. There is also anterolisthesis of C7 on T1 which is degenerative in appearance. No evidence of a traumatic listhesis. No suspicious lytic or bl astic osseous lesion, although there is cystic change of the endplates with [id number] endplate con tact from C4-C5 through C6-C7. The facets are congruent with no evidence of subluxation or dislocatio n. Normal configuration of the craniocervical junction. IMPRESSION: No CT evidence of acute traumatic cervical spine injury. Reviewed by: Pedro Otto MD on 01/18/2021 8:52 PM PST Approved by: Pedro Otto MD on 01/18/2021 8:52 PM PST Station ID: [id number]
--- NOTE | 2021-01-18 20:56 | CT Report ---
PROCEDURE: HEAD WO INDICATIONS: Head injury TECHNIQUE: Noncontrast 4.5 mm thick angled axial sections acquired from the foramen magnum to the vertex. For r adiation dose reduction, the following was used: automated exposure control, adjustment of mA and/or kV according to patient size. COMPARISON: 08/10/2020 FINDINGS: Image quality: Excellent. CSF spaces: Basal cisterns are patent. No extra-axial fluid collections. Ventricles are normal in size and shape. Brain: No midline shift. No intracranial masses or hemorrhage. Ramirez-white matter interface is norm al. Skull and face: Right posterior parietal scalp hematoma and laceration. Calvarium and visualized fac ial bones are intact, without suspicious lesions. Sinuses: Visualized sinuses and mastoids are clear. IMPRESSION: No acute intracranial abnormality. Right posterior parietal scalp hematoma and laceratio n. Reviewed by: Pedro Otto MD on 01/18/2021 8:54 PM PST Approved by: Pedro Otto MD on 01/18/2021 8:54 PM PST Station ID: [id number]
[2021-01-18 22:11] VITALS: BP 155/68
== END 2021-01-18 22:10 | disposition home or self-care (01) ==
LOC: EDUNIT# → ED 20:12
DX: S01.01XA Laceration without foreign body of scalp, initial encounter (principal); S09.90XA Unspecified injury of head, initial encounter; S19.9XXA Unspecified injury of neck, initial encounter; W01.190A Fall on same level from slipping, tripping and stumbling with subsequent striking against furniture, initial encounter; D62 Acute posthemorrhagic anemia; Z23 Encounter for immunization; M47.812 Spondylosis without myelopathy or radiculopathy, cervical region; I10 Essential (primary) hypertension; Z87.891 Personal history of nicotine dependence
CPT/HCPCS: 12002; 36415; 85014; 85018; 90471; 99282; 99284

== ENCOUNTER 2021-11-04 14:48 | Emergency (ER) | payer MEDICARE, OTHER ==
--- NOTE | 2021-11-04 15:15 | ED Physician Documentation ---
PD HPI HEAD INJURY - Stated complaint Stated Complaint: FALL, HEAD INJURY - Chief complaint Chief Complaint: Trauma Hd/Nk - History obtained from History obtained from: Patient - History of Present Illness Mechanism of head injury: Fell (She got up this morning and felt a little lightheaded and lost balance and fell backwards. She denies loss of consciousness. Struck her head with a laceration there. Local pain without diffuse headache. She is not on blood thinners.) Where head injury occurred: Home Timing - onset: How many hours ago (several), Today Location of injury: Back Quality of pain: Pain, Aching Associated symptoms: No: LOC, AMS, Nausea / vomiting, Paresthesias Symptoms worsen with: Palpation. No: Movement Contributing factors: No: Anticoagulated Recently seen: Not recently seen Review of Systems Constitutional: denies: Fever Nose: denies: Rhinorrhea / runny nose, Congestion Throat: denies: Sore throat Respiratory: denies: Cough Skin: reports: Laceration (s) (occiput) Neurologic: reports: Headache (at injury site). 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: Breast cancer : Incontinence, Frequency HEENT: Dental implants, Other Psych: None, Claustrophobia Musculoskeletal: Rheumatoid arthritis, Osteoporosis, Fatigue Derm: Other - Past Surgical History Past Surgical History: Yes General: Colonoscopy Ortho: Other /PLASTER TENDER: Mastectomy HEENT: Cataracts - Present Medications Home Medications: Ambulatory Orders Medication Instructions Recorded Confirmed Calcium Carb/D3/Magnesium/Zinc 1 tab ORAL DAILY 08/29/15 10/25/21 [[place] Mag Zinc + D3 Tablet] Folic Acid 1 mg ORAL DAILY 08/29/15 10/25/21 Multivit-Min/FA/Lycopen/Lutein 1 tab ORAL DAILY 08/29/15 10/25/21 [Centrum Silver Tablet] Omeprazole [PriLOSEC] 20 mg PO DAILY PRN 07/03/16 10/25/21 Atorvastatin Calcium [Lipitor] 0.5 tab ORAL DAILY 02/19/17 10/25/21 Enalapril Maleate [Vasotec] 1 tab PO DAILY 02/25/17 10/25/21 Methotrexate [Methotrexate Sodium] 2.5 mg PO Q7D 02/25/17 10/25/21 Prednisone [Patti] 4 mg PO DAILY 12/11/17 10/25/21 Metoprolol Tartrate [Lopressor] 25 mg PO BID 08/10/20 10/25/21 Acetaminophen/Cod 300/30 [Tylenol 1 tab PO Q4HR PRN 07/05/21 10/25/21 #3] Albuterol 2 puffs INH DAILY PRN 07/05/21 10/25/21 Aspirin [Aspirin EC] 81 mg PO DAILY 07/05/21 10/25/21 Fluoxetine HCl [Prozac] 20 mg PO DAILY 07/05/21 10/25/21 amLODIPine [Norvasc] 1 tab PO DAILY 07/05/21 10/25/21 - Allergies Allergies/Adverse Reactions: Allergies Allergy/AdvReac Type Severity Reaction Status Date / Time No Known Drug Allergies Allergy Verified 11/04/21 15:06 - Social History Does the pt smoke?: No Smoking Status: Former smoker Does the pt drink ETOH?: No Does the pt have substance abuse?: No - Immunizations Immunizations are current?: Yes - POLST Patient has POLST: No PD ED PE NORMAL - Vitals Vital signs reviewed: Yes - General General: Alert and oriented X 3, No acute distress, Well developed/nourished - HEENT HEENT: PERRL, EOMI, Other (dried matted bloody hair over area of tenderness back of head. Laceration palpable. Seen better after cleansing, 3 mc without FB.) - Neck Neck: Supple, no meningeal sign, No bony TTP, No adenopathy - Cardiac Cardiac: No murmur - Respiratory Respiratory: Clear bilaterally, Other (no chestwall tenderness) - Abdomen Abdomen: Soft, Non tender - Back Back: No CVA TTP - Derm Derm: Normal color, Warm and dry - Extremities Extremities: Normal ROM s pain - Neuro Neuro: Alert and oriented X 3, No motor deficit, No sensory deficit, Normal speech Eye Opening: Spontaneous Motor: Obeys Commands Verbal: Oriented GCS Score: 15 - Psych Psych: Normal mood Results - Vitals Vitals: Vital Signs - 24 hr 11/04/21 11/04/21 15:00 17:06 Temperature 36.4 C L Heart Rate 55 L 56 L Respiratory 20 16 Rate Blood Pressure 138/64 H 142/80 H O2 Saturation 97 99 Oxygen O2 Source Room air - Rads (name of study) head CT Radiology: Prelim report reviewed (no ICH nor acute process. ), See rad report Procedures - Laceration (location) occiput scalp Length in cm: 3 (mild ongoing bleeding) Wound type: Linear, Clean Neurovascular status: Sensory intact Anesthesia: Lidocaine 1% with epi Wound preparation: Irrigated copiously NS Skin layer closure: Nylon, Running, Size #-0 - enter number (4), Sutures - enter # (5) Other: Patient tolerated well, No complications, Neurovascular intact, Tetanus UTD PD MEDICAL DECISION MAKING - ED course Complexity details: reviewed results, considered differential, d/w patient Departure - Departure Disposition: 01 Home, Self Care Clinical Impression: Episodic lightheadedness Fall Qualifiers: Encounter type: initial encounter Qualified Code(s): W19.XXXA - Unspecified fall, initial encounter Occipital scalp laceration Qualifiers: Encounter type: initial encounter Qualified Code(s): S01.01XA - Laceration without foreign body of scalp, initial encounter Condition: Stable Record reviewed to determine appropriate education?: Yes Instructions: ED Laceration Scalp Stitch Or Stap Follow-Up: Razia Campuzano MD [Primary Care Provider] - Comments: It is okay to wash and shower. Clean off the wound twice a day with soap and water, or peroxide and water. Apply some antibiotic ointment to it to keep it moist. Also to watch for signs of infection such as purulence, redness or increasing pain. Return to your primary care or the ER at the specified time for suture removal. Thank you Suture removal 8 to [address] scan no any signs of injury inside the brain compartment. Tylenol if needed for pains. Discharge Date/Time: 11/04/21 17:45
[2021-11-04] MEDS ORDERED: ACETAMINOPHEN 325 MG TABLET PO STA (15:30)
[2021-11-04] MEDS ORDERED: LIDOCAINE 1%-EPI 1:100000 20 ML MDV SUBQ STA (16:00)
--- NOTE | 2021-11-04 16:21 | CT Report ---
PROCEDURE: HEAD WO INDICATIONS: fall with head injury TECHNIQUE: Noncontrast 4.5 mm thick angled axial sections acquired from the foramen magnum to the vertex. For r adiation dose reduction, the following was used: automated exposure control, adjustment of mA and/or kV according to patient size. COMPARISON: CT head without contrast, 01/18/2021. FINDINGS: Image quality: There are mild motion artifacts at skull base. CSF spaces: Basal cisterns are patent. No extra-axial fluid collections. Ventricles are normal in size and shape. Brain: No midline shift. No intracranial masses or hemorrhage. Moderate cerebral volume loss and pe riventricular white matter chronic small vessel ischemic changes Skull and face: Calvarium and visualized facial bones are intact, without suspicious lesions. Sinuses: Visualized sinuses and mastoids are clear. IMPRESSION: 1. No acute intracranial abnormalities. No intracranial bleed or skull fracture. Reviewed by: Eddy Mcgrath MD on 11/04/2021 4:20 PM PST Approved by: Eddy Mcgrath MD on 11/04/2021 4:20 PM PST Station ID: [id number]
[2021-11-04 17:26] VITALS: BP 142/80
== END 2021-11-04 17:45 | disposition home or self-care (01) ==
LOC: ED 14:48
DX: R42 Dizziness and giddiness (principal); S01.01XA Laceration without foreign body of scalp, initial encounter; W01.0XXA Fall on same level from slipping, tripping and stumbling without subsequent striking against object, initial encounter; Y92.003 Bedroom of unspecified non-institutional (private) residence as the place of occurrence of the external cause; I10 Essential (primary) hypertension; Z79.82 Long term (current) use of aspirin; Z87.891 Personal history of nicotine dependence
CPT/HCPCS: 12002; 70450; 99282; 99284; A9270

== ENCOUNTER 2022-01-03 15:04 | Outpatient (CLI) | payer MEDICARE, OTHER ==
--- NOTE | 2022-01-03 16:15 | DEXA Report ---
PROCEDURE: Dexa Spine and/or Hip INDICATIONS: OSTEOPOROSIS TECHNIQUE: Dual energy x-ray absorptiometry (DXA) was performed on a [employer]appit System. Regions measur ed are the AP Spine, femoral neck, and if needed forearm. COMPARISON: September 07, 2018. FINDINGS: Lumbar Spine: Bone Mineral Density 1.112 g/cm/cm,T score -0.6, normal. Left Femoral Neck: Bone Mineral Density 0.58 g/cm/cm, T score -3.3, osteoporosis. Total: Bone Mineral Density 0.612 g/cm/cm, T score -3.1, osteoporosis (T score greater or equal to -1.0: NORMAL) (T score from -1.1 to -2.4: OSTEOPENIA) (T score less than or equal to -2.5 to: OSTEOPOROSIS) Impression: Bone mineral density as detailed above. Patients with diagnosis of osteoporosis or osteopenia should have regular bone mineral density assess ment. For those eligible for Medicare, routine testing is allowed once every 2 years. Testing frequ ency can be increased for patients who have rapidly progressing disease or for those who are receivin g medical therapy to restore bone mass. Reviewed by: Percy Ibanez MD on 01/03/2022 4:14 PM PST Approved by: Percy Ibanez MD on 01/03/2022 4:14 PM PST Station ID: [id number]
== END 2022-01-03 15:05 | disposition home or self-care (01) ==
LOC: DI 15:04
PROVIDERS: ATTEND Internal Medicine
DX: M81.0 Age-related osteoporosis without current pathological fracture (principal)

== ENCOUNTER 2022-10-02 16:29 | Outpatient (CLI) | payer MEDICARE, OTHER ==
--- NOTE | 2022-10-02 17:36 | XRAY Report ---
PROCEDURE: Chest 2 View X-Ray INDICATIONS: COPD TECHNIQUE: 2 views of the chest were acquired. COMPARISON: 01/24/2019 FINDINGS: Surgical changes and devices: None. Lungs and pleura: No pleural effusions or pneumothorax. Lungs are clear. Emphysematous change. Mediastinum: Mediastinal contours are normal. Moderate to severe cardiomegaly, as before. Bones and chest wall: Impressive scoliotic curvature. No suspicious bony abnormalities. Soft tissues appear unremarkable. IMPRESSION: 1. Moderate to severe cardiomegaly. 2. Emphysematous change. 3. No evidence acute process. Reviewed by: Casper Morales MD on 10/02/2022 5:35 PM PST Approved by: Casper Morales MD on 10/02/2022 5:35 PM PST Station ID: [id number]
== END 2022-10-02 16:30 | disposition home or self-care (01) ==
LOC: DI 16:29
PROVIDERS: ATTEND Internal Medicine
DX: J43.9 Emphysema, unspecified (principal); I51.7 Cardiomegaly

== ENCOUNTER 2023-10-06 15:57 | Emergency (ER) | payer MEDICARE, OTHER ==
--- NOTE | 2023-10-06 16:32 | ED Physician Documentation ---
History of Present Illness - Stated complaint Stated Complaint: CHEST PX - Chief complaint Chief Complaint: Cardiac - History obtained from History obtained from: Patient - Additonal information Additional information: 88-year-old woman presenting with a chief complaint of "I need an EKG." Apparently she went to her doctor's office today and was there for a weeks worth of pedal edema and they did an EKG in the office. It was unclear what the results were but she was told to come from there to here for another 1. She states she is not short of breath. Has no chest pain. 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 She has no history of arrhythmia that she is aware of. She has never had a heart attack. No history of renal problems. No history of DVT or PE. 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: Breast cancer : Incontinence, Frequency HEENT: Dental implants, Other Psych: None, Claustrophobia Musculoskeletal: Rheumatoid arthritis, Osteoporosis, Fatigue Derm: Other - Past Surgical History Past Surgical History: Yes General: Colonoscopy Ortho: Other /CYLINDER PRESS OPERATOR: Mastectomy HEENT: Cataracts - Present Medications Home Medications: Ambulatory Orders Medication Instructions Recorded Confirmed Folic Acid 1 mg ORAL DAILY 08/29/15 10/06/23 Multivit-Min/FA/Lycopen/Lutein 1 tab ORAL DAILY 08/29/15 10/06/23 [Centrum Silver Tablet] Omeprazole [PriLOSEC] 20 mg PO DAILY PRN 07/03/16 10/06/23 Atorvastatin Calcium [Lipitor] 40 mg ORAL DAILY 02/19/17 10/06/23 Methotrexate [Methotrexate Sodium] 2.5 mg PO Q7D 02/25/17 10/06/23 Prednisone [Patti] 2 mg PO BID 12/11/17 10/06/23 Metoprolol Tartrate [Lopressor] 25 mg PO BID 08/10/20 10/06/23 Albuterol 2 puffs INH DAILY PRN 07/05/21 10/06/23 Aspirin [Aspirin EC] 81 mg PO DAILY 07/05/21 10/06/23 Fluoxetine HCl [Prozac] 20 mg PO DAILY 07/05/21 10/06/23 amLODIPine [Norvasc] 1 tab PO DAILY 07/05/21 10/06/23 Furosemide [Lasix] 20 mg PO DAILY #10 tablet 10/06/23 Lisinopril [Zestril] 10 mg PO DAILY #10 tablet 10/06/23 Magnesium Oxide [Mag Ox] 400 mg PO 0800 #10 tablet 10/06/23 Potassium Chloride 10 meq PO DAILY #10 tab 10/06/23 - Allergies Allergies/Adverse Reactions: Allergies Allergy/AdvReac Type Severity Reaction Status Date / Time No Known Drug Allergies Allergy Verified 10/06/23 16:10 - Social History Does the pt smoke?: No Smoking Status: Never smoker Does the pt drink ETOH?: No Does the pt have substance abuse?: No - Immunizations Immunizations are current?: Yes - POLST Patient has POLST: No PD ED PE NORMAL - Vitals Vital signs reviewed: Yes - General General: Other (Funmi 88-year-old woman who is potentially mildly confused or at least certainly not a very succinct historian.) - HEENT HEENT: PERRL, EOMI - Neck Neck: Supple, no meningeal sign, No bony TTP - Cardiac Cardiac: Other (Irregularly irregular without murmur) - Respiratory Respiratory: No respiratory distress, Clear bilaterally - Abdomen Abdomen: Non tender - Derm Derm: Normal color, Warm and dry - Extremities Extremities: Other (2+ pitting pedal edema to just above the ankle) Results - Vitals Vitals: Vital Signs - 24 hr 10/06/23 10/06/23 16:05 16:58 Temperature 36 C L Heart Rate 84 81 Respiratory 18 22 Rate Blood Pressure 164/87 H 180/91 H O2 Saturation 95 99 Oxygen O2 Source Room air - EKG (time done) 1640 EKG releavant findings:: EKG personally interpreted by author of this note. Relevant findings are: Rate: Rate (enter#) (67) Rhythm: NSR (w frequent pvcs), LAE QRS: LVH Ischemia: Non specific changes. No: ST elevation c/w ischemia, ST depression - Labs Labs: Laboratory Tests 10/06/23 10/06/23 10/06/23 16:50 16:50 16:50 WBC 5.6 RBC 3.89 L Hgb 13.4 Hct 43.2 MCV 111.1 H MCH 34.4 H MCHC 31.0 L RDW 13.0 Plt Count 160 MPV 10.6 Neut # (Auto) 3.8 Lymph # (Auto) 1.3 L Sullivan # (Auto) 0.5 Eos # (Auto) 0.1 Baso # (Auto) 0.0 Absolute Nucleated RBC 0.00 Nucleated RBC % 0.0 Sodium 140 Potassium 3.7 Chloride 102 Carbon Dioxide 32 Anion Gap 6.0 BUN 16 Creatinine 0.5 L Estimated GFR (MDRD) 117 Glucose 102 Calcium 10.1 Magnesium 1.5 L B-Natriuretic Peptide 1049 H TSH 1.86 PD Medical Decision Making - ED course ED course: 88-year-old woman presents to the emergency department at the behest of her primary care physician for an EKG after an abnormal EKG in the office for symptoms of pedal edema. She is moderately fluid overloaded here but not dyspneic or needing excess oxygen. Work-up in the emergency department demonstrates frequent PACs and evidence of CHF with elevated BNP. CBC is otherwise normal. Chemistry panel only notable for mild hypomagnesemia. We will start on Lasix, lisinopril, and potassium and magnesium supplementation pending follow-up. Departure - Departure Disposition: Home, Self Care Clinical Impression: Congestive heart failure Qualifiers: Heart failure chronicity: acute Condition: Good Record reviewed to determine appropriate education?: Yes Instructions: ED CHF General Prescriptions: Furosemide [Lasix] 20 mg PO DAILY #10 tablet Magnesium Oxide [Mag Ox] 400 mg PO 0800 #10 tablet Potassium Chloride 10 meq PO DAILY #10 tab Lisinopril [Zestril] 10 mg PO DAILY #10 tablet Comments: You were found today to have some congestive heart failure and irregular heartbeat. I am starting you on medications for your elevated blood pressure which should take the strain off your heart and a diuretic. With the diuretic you will also need potassium and magnesium supplementation. Follow-up with Dr. Razia Campuzano and he may consider further evaluation and treatment such as echocardiography and/or cardiology referral. Return for new or worsening symptoms. Forms: PCP List
[2023-10-06 16:56] LABS: BASOPHILS % (AUTO) 0.5 %; EOSINOPHILS # (AUTO) 0.1 10^3/uL (0.0-0.7); EOSINOPHILS % (AUTO) 1.1 %; HCT - HEMATOCRIT 43.2 % (37.0-47.0); HGB - HEMOGLOBIN 13.4 g/dL (12.0-16.0); LYMPHOCYTES # (AUTO) 1.3 10^3/uL (1.5-3.5); LYMPHOCYTES % (AUTO) 22.7 %; MEAN CORPUSCULAR HEMOGLOBIN 34.4 pg (27.0-31.0); MEAN CORPUSCULAR VOLUME 111.1 fL (81.0-99.0); MEAN PLATELET VOLUME 10.6 fL (7.9-10.8); MONOCYTES # (AUTO) 0.5 10^3/uL (0.0-1.0); MONOCYTES % (AUTO) 8.9 %; NEUTROPHILS # (AUTO) 3.8 10^3/uL (1.5-6.6); NEUTROPHILS % (AUTO) 66.4 %; PLT - PLATELET COUNT 160 10^3/uL (130-450); RED BLOOD COUNT 3.89 10^6/uL (4.20-5.40); WHITE BLOOD COUNT 5.6 x10^3/uL (4.8-10.8)
[2023-10-06 17:04] VITALS: O2SAT 99
[2023-10-06 17:09] LABS: CALCIUM 10.1 mg/dL (8.5-10.3); CREATININE 0.5 mg/dL (0.6-1.3); MAGNESIUM 1.5 mg/dL (1.7-2.3); POTASSIUM 3.7 mmol/L (3.5-4.5)
[2023-10-06 17:24] LABS: THYROID STIMULATING HORMONE 1.86 uIU/mL (0.34-5.60)
[2023-10-06] MEDS ORDERED: FUROSEMIDE 20 MG TABLET PO STA (17:39)
[2023-10-06] MEDS ORDERED: MAGNESIUM OXIDE 400 MG TABLET PO STA (17:39)
[2023-10-06] MEDS ORDERED: lisinopriL 5 MG TABLET PO STA (17:39)
[2023-10-06 18:00] VITALS: BP 153/72
[2023-10-06 18:34] LABS: PLATELET ESTIMATE, MANUAL NORMAL (130-450,000) (NORMAL); PLATELET MORPHOLOGY NORMAL APPEARANCE (NORMAL); RBC MORPHOLOGY (MULTIPLE) 3+ MACROCYTOSIS (NORMAL); SLIDE REVIEW? Indicated
== END 2023-10-06 18:02 | disposition home or self-care (01) ==
LOC: ED 15:57
DX: I11.0 Hypertensive heart disease with heart failure (principal); I50.9 Heart failure, unspecified; I49.1 Atrial premature depolarization; E83.42 Hypomagnesemia
CPT/HCPCS: 36415; 80048; 83735; 83880; 84443; 85025; 93005; 99284; A9270